=== PATIENT | female | born 1985 | race Two or more races ===

== ENCOUNTER 2018-11-13 01:22 | Emergency (ER) | payer OTHER ==
[~2018-11-13] VITALS: Ht 154.9 cm; Wt 96.5 kg
[2018-11-13 01:37] VITALS: BP 119/79
[2018-11-13] MEDS ORDERED: [UNRECOGNIZED DRUG - CODE] PO (02:40)
[2018-11-13] MEDS ORDERED: DOLU50TA PO (02:47)
[2018-11-13] MEDS ORDERED: [UNRECOGNIZED DRUG - CODE] PO (02:47)
--- NOTE | 2018-11-13 02:55 | ED.ADGEN ---
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 Patient's here for prophylactic therapy she denies any symptoms right now she stated that she wash her hands right after the poke Review of Systems Review of Systems Constitutional: Denies fever or chills [] Eyes: Denies change in visual acuity, redness, or eye pain [] HENT: Denies nasal congestion or sore throat [] Respiratory: Denies cough or shortness of breath [] Cardiovascular: No additional information not addressed in HPI [] GI: Denies abdominal pain, nausea, vomiting, bloody stools or diarrhea [] : Denies dysuria or hematuria [] Musculoskeletal: Denies back pain or joint pain [] Integument: Denies rash or skin lesions [] Neurologic: Denies headache, focal weakness or sensory changes [] Endocrine: Denies polyuria or polydipsia [] All other systems were reviewed and found to be within normal limits, except as documented in this note. Allergies Allergies Allergies Coded Allergies Type Severity Reaction Last Updated Verified No Known Drug Allergies 11/13/18 No Physical Exam Physical Exam Constitutional: Well developed, well nourished, no acute distress, non-toxic appearance. [] HENT: Normocephalic, atraumatic, bilateral external ears normal, oropharynx moist, no oral exudates, nose normal. [] Eyes: PERRLA, EOMI, conjunctiva normal, no discharge. [] Neck: Normal range of motion, no tenderness, supple, no stridor. [] Cardiovascular:Heart rate regular rhythm, no murmur [] Lungs & Thorax: Bilateral breath sounds clear to auscultation [] Abdomen: Bowel sounds normal, soft, no tenderness, no masses, no pulsatile masses. [] Skin: Warm, dry, no erythema, no rash. [] Back: No tenderness, no CVA tenderness. [] Extremities: No tenderness, no cyanosis, no clubbing, ROM intact, no edema. [] Neurologic: Alert and oriented X 3, normal motor function, normal sensory function, no focal deficits noted. [] Psychologic: Affect normal, judgement normal, mood normal. [] Current Patient Data Vital Signs Vital Signs Date Time Temp Pulse Resp B/P (MAP) Pulse Ox O2 Delivery O2 Flow Rate FiO2 11/13/18 01:37 97.6 64 18 100 Room Air EKG EKG [] Radiology/Procedures Radiology/Procedures [] Course & Med Decision Making Course & Med Decision Making Pertinent Labs and Imaging studies reviewed. (See chart for details) HIV testing hep C testing hep B testing ordered Prophylactic therapy for HIV started Patient referred to [facility] infectious disease department [] Final Impression Final Impression [] Problems: (1) Exposure to body fluid due to accidental needlestick injury Dragon Disclaimer Dragon Disclaimer This electronic medical record was generated, in whole or in part, using a voice recognition dictation system. FRANC LEE MD Nov 13, 2018 02:55
[2018-11-13 03:30] LABS: CREATININE 0.8 mg/dL (0.6-1.0); GFR 82.6; POTASSIUM 3.6 mmol/L (3.5-5.1)
== END 2018-11-13 02:50 | disposition home or self-care (01) ==
LOC: ER 01:22
DX: S69.82XA Other specified injuries of left wrist, hand and finger(s), initial encounter (principal); Z77.21 Contact with and (suspected) exposure to potentially hazardous body fluids; J45.909 Unspecified asthma, uncomplicated; W46.1XXA Contact with contaminated hypodermic needle, initial encounter; Y93.89 Activity, other specified; Y92.149 Unspecified place in prison as the place of occurrence of the external cause; Y99.0 Civilian activity done for income or pay
CPT/HCPCS: 36415; 80048; 86703; 86704; 86803; 99283

== ENCOUNTER 2019-06-03 00:01 | Emergency (ER) | payer OTHER ==
[~2019-06-03] VITALS: Ht 154.9 cm; Wt 96.5 kg
[~2019-06-03 00:01] MED LIST: DOLU50TA PO; [UNRECOGNIZED DRUG - CODE] PO; [UNRECOGNIZED DRUG - CODE] PO
[2019-06-03] MEDS ORDERED: DICL50TA4 PO (02:19)
[2019-06-03] MEDS ORDERED: TRAM50TA PO (02:19)
--- NOTE | 2019-06-03 02:19 | PHYS DOC ---
Past History Past Medical History: Asthma, GERD Past Surgical History: Other Alcohol Use: Occasionally Drug Use: None Adult General Chief Complaint Chief Complaint: LOWEREXTREMITY INJURY [facility] HPI Patient is a 33-year-old female who presents with complaint of right calf pain after injuring herself at work. Patient states that initially she had sustained a mild injury last night while going down stairs at work. She states that she had twisted her lower leg and initially felt some mild discomfort but symptoms had improved. She states that this evening, she was responding to an emergent situation at the [facility] and she had run down two corridors and on the second corridor she felt a sharp pain in the back of her left calf. Patient states that since feeling that pain in her calf, she has had pain with weightbearing. She rates pain as moderate. [] Review of Systems Review of Systems Constitutional: Denies fever or chills [] Respiratory: Denies cough or shortness of breath [] Cardiovascular: No additional information not addressed in HPI [] Musculoskeletal: Positive right calf pain [] Integument: Denies rash or skin lesions [] Allergies Allergies Allergies Coded Allergies Type Severity Reaction Last Updated Verified No Known Drug Allergies 11/13/18 No Physical Exam Physical Exam Constitutional: Well developed, well nourished, no acute distress, non-toxic appearance. [] Cardiovascular:Heart rate regular rhythm, no murmur [] Lungs & Thorax: Bilateral breath sounds clear to auscultation [] Skin: Warm, dry, no erythema, no rash. [] Extremities: Examination of right lower leg demonstrates no deformity. There is tenderness to palpation of the right distal calf. Prajapati's test is negative. [] Neurologic: Alert and oriented X 3, no focal deficits noted. [] Current Patient Data Vital Signs Vital Signs Date Time Temp Pulse Resp B/P (MAP) Pulse Ox O2 Delivery O2 Flow Rate FiO2 06/03/19 00:34 98.0 66 19 99 Room Air Lab Results Laboratory Tests Test 06/03/19 01:37 D-Dimer (Kendal) 0.31 mg/L (0.00-0.50) EKG EKG [] Radiology/Procedures Radiology/Procedures [] Course & Med Decision Making Course & Med Decision Making Pertinent Labs and Imaging studies reviewed. (See chart for details) [] Dragon Disclaimer Dragon Disclaimer This electronic medical record was generated, in whole or in part, using a voice recognition dictation system. Departure Departure: Impression: Primary Impression: Strain of calf muscle Disposition: HOME, SELF-CARE Condition: STABLE Referrals: PCP,YOBANY (PCP) Patient Instructions: Muscle Strain Scripts Tramadol Hcl (TRAMADOL HCL) 50 Mg Tablet 50 MG PO PRN Q6HRS PRN for PAIN, #12 TAB Prov: MONTY REDDING Jr. DO 06/03/19 Diclofenac Sodium (DICLOFENAC SODIUM) 50 Mg Tablet.dr 1 TAB PO BID PRN for PAIN, #20 TAB Prov: MONTY REDDING Jr. DO 06/03/19 Problem Qualifiers Primary Impression: Strain of calf muscle Encounter type: initial encounter Laterality: right Qualified Codes: S86.811A - Strain of other muscle(s) and tendon(s) at lower leg level, right leg, initial encounter MONTY REDDING Jr. DO Jun 03, 2019 02:19
[2019-06-03 02:21] VITALS: BP 123/79
== END 2019-06-03 02:51 | disposition home or self-care (01) ==
LOC: ER 00:01
DX: S86.811A Strain of other muscle(s) and tendon(s) at lower leg level, right leg, initial encounter (principal); J45.909 Unspecified asthma, uncomplicated; K21.9 Gastro-esophageal reflux disease without esophagitis; X50.9XXA Other and unspecified overexertion or strenuous movements or postures, initial encounter; Y93.01 Activity, walking, marching and hiking; Y92.148 Other place in prison as the place of occurrence of the external cause; Y99.0 Civilian activity done for income or pay
CPT/HCPCS: 36415; 85379; 99283